=== PATIENT | female | born 1975 | race Caucasian/White ===

== ENCOUNTER 2025-07-25 23:46 | Emergency (ER) | payer OTHER ==
[~2025-07-25] VITALS: Ht 157.5 cm; Wt 83.6 kg
[2025-07-26 00:57] VITALS: TEMP 98.1
[2025-07-26 01:20] LABS: PLATELET COUNT (AUTO) 231 K/uL (150-450); RED BLOOD CELL COUNT(AUTO) 4.51 MIL/uL (4.00-5.20); RED CELL DISTRIBUTION WIDTH 15.9 % (11.5-14.5); WHITE BLOOD COUNT (AUTO) 9.1 K/uL (4.5-11.0)
[2025-07-26 01:30] VITALS: BP 124/66; PULSE 71; RESP 16; O2SAT 99
[2025-07-26 01:37] LABS: CALCIUM, TOTAL 8.7 mg/dL (8.8-10.5); CREATININE 0.62 mg/dL (0.60-1.30); GLOMERULAR FILTR. RATE CALC > 60 mL/min (>60); GLUCOSE,RANDOM 97 mg/dL (70-110); SODIUM SERUM 139 mmol/L (136-145); UREA NITROGEN, BLOOD 19 mg/dL (7-18)
[2025-07-26 01:38] LABS: COVID AG,FIA SOURCE NASAL SWAB
[2025-07-26 01:55] LABS: SARS-COV2 (COVID) ANTIGEN,FIA Negative (Negative)
== END 2025-07-26 03:48 ==
LOC: EMS 07-26 00:26
DX: F32.A Depression, unspecified (principal); R45.851 Suicidal ideations; Z20.822 Contact with and (suspected) exposure to COVID-19
CPT/HCPCS: 99284; 87426; 80048; 85025; 36415; G0480